=== PATIENT | female | born 1995 | race Caucasian/White ===

== ENCOUNTER 2016-12-29 12:51 | Emergency (ER) | payer OTHER ==
[~2016-12-29] VITALS: Ht 162.6 cm; Wt 56.0 kg
[2016-12-29 12:55] VITALS: Ht 162.6 cm; Wt 56.0 kg
[2016-12-29 14:18] LABS: ADD SCAN DIFF NO
[2016-12-29 14:20] LABS: BASOPHIL # 0.1 10^3/ul (0.0-0.1); BASOPHILS % 0.8 % (0.0-2.0); EOSINOPHILS # 0.4 10^3/ul (0.0-0.5); EOSINOPHILS % 6.5 % (0.0-7.0); HEMATOCRIT 39.1 % (37.0-47.0); HEMOGLOBIN 13.5 g/dl (12.0-16.0); LYMPHOCYTES # 1.9 10^3/ul (0.8-2.9); LYMPHOCYTES % 28.7 % (15.0-51.0); MEAN CORPUSCULAR HEMOGLOBIN 32.4 pg (29.0-33.0); MEAN CORPUSCULAR HGB CONC 34.5 g/dl (32.0-37.0); MEAN CORPUSCULAR VOLUME 93.8 fl (82.0-101.0); MEAN PLATELET VOLUME 9.6 fl (7.4-10.4); MONOCYTE # 0.4 10^3/ul (0.3-0.9); MONOCYTES % 6.2 % (0.0-11.0); NEUTROPHIL # 3.8 10^3/ul (1.6-7.5); NEUTROPHILS % 57.6 % (39.0-77.0); PLATELET COUNT 244 10^3/UL (140-415); RED BLOOD COUNT 4.17 10^6/ul (4.20-5.40); RED CELL DISTRIBUTION WIDTH 11.6 % (11.5-14.5); WHITE BLOOD COUNT 6.6 10^3/ul (4.8-10.8)
[2016-12-29 14:24] LABS: ADD UMIC YES; UR ASCORBIC ACID NEGATIVE (NEGATIVE); UR BILIRUBIN (Dip) NEGATIVE (NEGATIVE); UR BLOOD (Dip) 2+ mg/dL (NEGATIVE); UR CLARITY CLEAR (CLEAR); UR COLOR YELLOW (YELLOW); UR GLUCOSE (Dip) NEGATIVE (NEGATIVE); UR KETONES (Dip) NEGATIVE (NEGATIVE); UR LEUKOCYTE ESTERASE (Dip) NEGATIVE Leu/ul (NEGATIVE); UR NITRITE (Dip) NEGATIVE (NEGATIVE); UR RBC 1 /HPF (0-5); UR SPECIFIC GRAVITY (Dip) 1.008 (1.003-1.030); UR TOTAL PROTEIN (Dip) NEGATIVE (NEGATIVE); UR UROBILINOGEN (Dip) NEGATIVE (NEGATIVE)
--- NOTE | 2016-12-29 15:23 | RADRPT ---
PROCEDURE: US Pelvis/OB. CLINICAL INDICATION: vaginal bleeding TECHNIQUE: Multiple sonographic images of the pelvis were obtained utilizing a transabdominal and endovaginal technique. The images were reviewed on a PACS workstation. COMPARISON: None. FINDINGS: There is a small heterogeneous cystic structure within the endometrium measuring 2.1 cm which would correspond to a calculated gestational age of 6 weeks and 6 days. There is internal debris within th is cystic structure. No pole or yolk sac is visualized. The ovaries are normal. No abnormal adnexal masses are present. The right ovary measures 3.0 x 2.2 x 2.3 cm. The left ovary measures 2.5 x 1.9 cm. No significant free fluid is present within the pelvis. RPTAT: AA IMPRESSION: Probable nonviable . Close followup ultrasound and hCG is recommended. .Gera Boland MD, Date Time Electronically viewed and signed by .Gera Boland MD, on 12/29/2016 15:23 .S/
--- NOTE | 2016-12-29 15:43 | ERD ---
ER Documentation Chief Complaint Date/Time DATE: 12/29/16 TIME: 15:40 Chief Complaint vag bleed since yesterday , 9 weeks preg HPI 21-year-old female presents with vaginal bleeding since yesterday. She is approximately 9 weeks by dates. She gives a history of possibly abnormal and was being followed by her OB. Her last ultrasound and laboratory work was approximately 1 week ago she states that she was told her hormone level is decreasing and there is only a sac visible. She started bleeding yesterday. She has some mild crampy suprapubic pain. She denies any right or left sided abdominal pain and denies any fevers, vomiting, shortness breath or chest pain. She is a G2 para 0 ROS All systems reviewed and are negative except as per history of present illness. PMhx/Soc Medical and Surgical Hx: pt denies Medical Hx, pt denies Surgical Hx History of Surgery: No Anesthesia Reaction: No Hx Neurological Disorder: No Hx Respiratory Disorders: No Hx Cardiac Disorders: No Hx Psychiatric Problems: No Hx Miscellaneous Medical Probl: No Hx Alcohol Use: No Hx Substance Use: No Hx Tobacco Use: No Smoking Status: Never smoker Physical Exam Vitals Vital Signs Date Time Temp Pulse Resp B/P Pulse Ox O2 Delivery O2 Flow Rate FiO2 12/29/16 12:55 97.9 86 18 111/67 98 Physical Exam Const: [] Alert, not ill-appearing. Head: Atraumatic Eyes: Normal Conjunctiva ENT: Normal External Ears, Nose and Mouth. Neck: Full range of motion..~ No meningismus. Resp: Clear to auscultation bilaterally Cardio: Regular rate and rhythm, no murmurs Abd: Soft, minimal suprapubic tenderness, non distended. Normal bowel sounds Skin: No petechiae or rashes Back: No midline or flank tenderness Ext: No cyanosis, or edema Neur: Awake and alert Psych: Normal Mood and Affect Result Diagram: 12/29/16 1415 Results 24 hrs Laboratory Tests Test 12/29/16 14:15 White Blood Count 6.610^3/ul Red Blood Count 4.1710^6/ul Hemoglobin 13.5g/dl Hematocrit 39.1% Mean Corpuscular Volume 93.8fl Mean Corpuscular Hemoglobin 32.4pg Mean Corpuscular Hemoglobin Concent 34.5g/dl Red Cell Distribution Width 11.6% Platelet Count 04433^3/UL Mean Platelet Volume 9.6fl Neutrophils % 57.6% Lymphocytes % 28.7% Monocytes % 6.2% Eosinophils % 6.5% Basophils % 0.8% Nucleated Red Blood Cells % 0.0/100WBC Neutrophils # 3.810^3/ul Lymphocytes # 1.910^3/ul Monocytes # 0.410^3/ul Eosinophils # 0.410^3/ul Basophils # 0.110^3/ul Nucleated Red Blood Cells # 0.010^3/ul Urine Color YELLOW Urine Clarity CLEAR Urine pH 7.0 Urine Specific [place] 1.008 Urine Ketones NEGATIVEmg/dL Urine Nitrite NEGATIVEmg/dL Urine Bilirubin NEGATIVEmg/dL Urine Urobilinogen NEGATIVEmg/dL Urine Leukocyte Esterase NEGATIVELeu/ul Urine Microscopic RBC 1/HPF Urine Microscopic WBC 2/HPF Urine Hemoglobin 2+mg/dL Urine Glucose NEGATIVEmg/dL Urine Total Protein NEGATIVEmg/dl Beta HCG, Quantitative 1984.0mIU/ml Procedures/MDM Pelvic ultrasound today shows small cystic structure within the endometrium approximately 2.1 cm. There is some internal debris. No pole or yolk sac appreciated. Impression by the radiologist is a likely nonviable but follow-up recommended. Patient is Rh+. Urine shows no signs of infection, glucose. Quantitative hCG today is 1984. We do not have previous records from clinic to review. Patient is stable amatory throughout the ED course. Patient presents with vaginal bleeding first trimester with a cystic structure in the endometrium. Differential includes early normal , incomplete or ectopic . Patient will be discharged home with instructions for an additional 2 day recheck.. Patient otherwise return sooner for fevers, redness , new worsening symptoms. Signs and symptoms do not suggest additional causes of abdominal pain such as appendicitis, obstruction, acute abdomen. There is no evidence of septic . Departure Diagnosis: Primary Impression: Vaginal bleeding in patient at less than 20 weeks ges... Condition: Stable Patient Instructions: Bleeding During Early Additional Instructions: Suspect miscarriage in progress but recommend recheck in 2 days. Recheck sooner otherwise for new or worsening symptoms. Take Tylenol for pain. RAMON BARRY MD Dec 29, 2016 15:43
== END 2016-12-29 15:58 | disposition home or self-care (01) ==
LOC: FTE 12:51
DX: O20.9 Hemorrhage in early pregnancy, unspecified (principal); Z3A.01 Less than 8 weeks gestation of pregnancy
CPT/HCPCS: 36415; 76801; 76817; 81001; 84702; 85025; 86900; 86901; Z7502